=== PATIENT | male | born 1960 | race Asian ===

== ENCOUNTER 2020-11-01 10:13 | Day surgery (SDC) | payer OTHER ==
[~2020-11-01] VITALS: Ht 180.3 cm; Wt 72.5 kg
[~2020-11-01 10:13] MED LIST: NO HOME MEDICATIONS
[2020-11-01 12:41] VITALS: BP 125/82; PULSE 58; TEMP 96.7
[2020-11-01 14:10] VITALS: BP 108/79; PULSE 54; TEMP 97.9
--- NOTE | 2020-11-01 14:10 | NUR ---
The patient was escorted out via wheelchair to a private vehicle by SONDRA Jerome. The pateint's belongings and dishcarge papework were sent with him. The patient's father is present to drive him home.
--- NOTE | 2020-11-01 14:10 | NUR ---
The patient arrived back to [facility] from the enoscopy suite at this time. The patient ambulated from the cart to the recliner in his room with the stand by assistance of one nurse and appeared tolerate the activity. Vital signs were started at this time. Call light is within reach. Will continue to monitor the patient.
[2020-11-01 14:25] VITALS: BP 116/80; PULSE 48
--- NOTE | 2020-11-01 14:25 | NUR ---
The patient agrees to try some apple juice and applesauce at this time. Vital signs appear stable. Will continue to monitor the patient.
[2020-11-01 14:40] VITALS: BP 115/84; PULSE 51
--- NOTE | 2020-11-01 14:40 | NUR ---
Appears to be tolerating the food and drink well. Vital signs remain stable. Will continue to monitor the patient.
[2020-11-01 14:55] VITALS: BP 125/82; PULSE 46
--- NOTE | 2020-11-01 14:55 | NUR ---
Discharge instructions were reviewed with the patient a this time. He verbalized understanding and has no questions for the nurse at this time. The patient's IV to his right hand was removed and a pressure dressing was applied to the site. The nurse instructed the patient to get dressed and notify the staff when he is ready to be escorted out.
== END 2020-11-01 14:10 | disposition home or self-care (01) ==
LOC: SDCO 10:13
DX: Z12.11 Encounter for screening for malignant neoplasm of colon (principal); D12.3 Benign neoplasm of transverse colon; Z86.010 Personal history of colon polyps; Z20.828 Contact with and (suspected) exposure to other viral communicable diseases; K59.00 Constipation, unspecified
CPT/HCPCS: J2704; J7120